=== PATIENT | female | born 1995 | race Caucasian/White ===

== ENCOUNTER 2021-11-06 17:09 | Outpatient (CLI) | payer MEDICAID ==
[~2021-11-06] VITALS: Ht 167.6 cm; Wt 67.7 kg
--- NOTE | 2021-11-06 17:20 | NUR ---
PT AMBULATORY ONTO UNIT WITH SIGNIFICANT OTHER. COMPLAINING OF TIGHTNESS IN STOMACH 2-3 TIMES AN HOUR. CHANGED INTO CLEAN GOWN. FHR MONITOR/TOCO APPLIED. VITAL SIGNS WNL. PT DENIES LEAKING OF FLUID, DECREASED MOVEMENT, REGULAR CONTRACTIONS, OR VAGINAL BLEEDING. PT ORIENTED TO ROOM. PLAN OF CARE DISCUSSED. PT VERBALIZES UNDERSTANDING.
[2021-11-06] MEDS ORDERED: CRINONE4% VG (17:43)
[2021-11-06] MEDS ORDERED: PRENATAL TABLET PO (17:43)
[2021-11-06] MEDS ORDERED: TYLENOL 325MG325 MG PO (17:44)
[2021-11-06 18:00] VITALS: BP 122/66; PULSE 83
--- NOTE | 2021-11-06 19:30 | NUR ---
Fluid bolus complete. Category 1 FHR tracing on Baby A and Baby B. Pt denies feeling cramping or abdominal pain. Only complaint is restless legs. Monitors off, patient up to bathroom at this time.
--- NOTE | 2021-11-06 20:15 | NUR ---
Discharge instructions reviewed with patient and spouse, verbalized understanding. Pt seen ambulating off unit with spouse.
== END 2021-11-06 20:15 | disposition home or self-care (01) ==
LOC: LDRO 17:09 → LDR 17:57 → LDRO 20:15
DX: O26.893 Other specified pregnancy related conditions, third trimester (principal); Z3A.29 29 weeks gestation of pregnancy
CPT/HCPCS: J7120

== ENCOUNTER 2021-12-18 11:10 | Outpatient (CLI) | payer MEDICAID ==
[~2021-12-18] VITALS: Ht 167.6 cm; Wt 83.0 kg
[~2021-12-18 11:10] MED LIST: CRINONE4% VG; PRENATAL TABLET PO; TYLENOL 325MG325 MG PO
--- NOTE | 2021-12-18 11:25 | NUR ---
PT AMBULATORY TO UNIT FOR SCHEDULE NST. DENIES LEAKING OF FLUID OR CONTRACTIONS. REPORTS POSITIVE MOVEMENT.
[2021-12-18] MEDS ORDERED: PROMETRIUM200 M1 VG (11:44)
--- NOTE | 2021-12-18 13:30 | NUR ---
ALL DC PAPERWORK REVIEWED AND UNDERSTOOD. PT TO BEGIN COLLECTION OF 24 HOUR URINE WITH NEXT VOID, ALL INSTRUCTIONS REVIEWED. (SEE PHYS NOTIFICATION FOR FURTHER LAB ORDERS TOMORROW). PT AGREEABLE AND VOICES UNDERSTANDING. NO FURTHER QUESTIONS OR CONCERNS AT THIS TIME.
[2021-12-19 15:50] LABS: BASO % 0.4 % (0.0-2.0); EOS # 0.4 K/mm3 (0.0-0.7); EOS % 4.2 % (0.0-4.0); GRAN # 6.9 K/mm3 (1.4-6.5); GRAN % 68.8 % (42.2-75.2); HEMATOCRIT 30.4 % (37.0-47.0); HEMOGLOBIN 9.8 g/dl (12.5-16.0); LYMPH # 1.8 K/mm3 (1.2-3.4); LYMPH % 18.1 % (20.0-51.0); MEAN CELL VOLUME 74 fl (80.0-100.0); MEAN CORPUSCULAR HEMOGLOBIN 24 pg (27-31); MEAN CORPUSCULAR HGB CONC 32 g/dl (33.0-37.0); MEAN PLATELET VOLUME 12.7 fl (7.4-10.4); MONO # 0.7 K/mm3 (0.1-0.6); MONO % 7.1 % (1.7-9.3); PLATELET COUNT 272 K/mm3 (130-400); RED BLOOD COUNT 4.11 M/mm3 (4.10-5.30); REDCELL DISTRIBUTION WIDTH-CV 16.7 % (11.5-14.5)
[2021-12-19 16:07] LABS: ALANINE AMINOTRANSFERASE 31 U/L (0-55); ALBUMIN 1.4 gm/dL (3.5-5.0); ALKALINE PHOSPHATASE 301 U/L (40-150); ANION GAP 9 mmol/L (7-16); AST,SGOT 48 U/L (5-34); BILIRUBIN,TOTAL 0.3 mg/dL (0.2-1.2); BLOOD UREA NITROGEN 15 mg/dL (7-19); CALCIUM 7.7 mg/dL (8.4-10.2); CARBON DIOXIDE 18 mmol/L (22-29); CHLORIDE 93 mmol/L (98-107); CREATININE, serum 0.62 mg/dL (0.57-1.11); GLUCOSE 82 mg/dL (70-99); POTASSIUM 4.4 mmol/L (3.5-4.5); SODIUM 120 mmol/L (136-145); TOTAL PROTEIN 5.5 gm/dL (6.2-8.1)
== END 2021-12-18 13:30 | disposition home or self-care (01) ==
LOC: LDRO 11:10
PROVIDERS: Obstetrics & Gynecology
DX: O16.3 Unspecified maternal hypertension, third trimester (principal); Z3A.35 35 weeks gestation of pregnancy

== ENCOUNTER → 2021-12-19 | Outpatient (CLI) | payer MEDICAID ==
[~2021-12-19] MED LIST changes: +CEPHALEXIN500 M1 PO; +MOTRIN 800800 MG/TAB PO; +PERCOCET 325 MG1 TA2 PO; +PROCARDIA XL 6060 MG PO; +PROMETRIUM200 M1 VG
[2021-12-19 16:52] LABS: CREATININE, serum 0.62 mg/dL (0.57-1.11)
[2021-12-19 17:36] LABS: PROTEIN, TOTAL URINE random 364 mg/dL
[2021-12-19 18:13] LABS: URINE TOTAL VOLUME - 24 HRS 2500 mL/24 hr
== END ==
LOC: COL.LAB 10:29
PROVIDERS: Obstetrics & Gynecology
DX: Z01.89 Encounter for other specified special examinations (principal)

== ENCOUNTER 2021-12-26 09:42 | Inpatient (IN) | payer MEDICAID ==
[~2021-12-26] VITALS: Ht 167.6 cm; Wt 83.2 kg
[2021-12-26] VITALS (27 sets, daily range): BP systolic 92–185; BP diastolic 44–112; PULSE 73–112; TEMP 97.4–98.2
[~2021-12-26 09:42] MED LIST changes: -CEPHALEXIN500 M1 PO; -MOTRIN 800800 MG/TAB PO; -PERCOCET 325 MG1 TA2 PO; -PROCARDIA XL 6060 MG PO
[2021-12-26 11:18] LABS: BASO # 0.1 K/mm3 (0.0-0.2); BASO % 0.5 % (0.0-2.0); EOS # 0.5 K/mm3 (0.0-0.7); EOS % 5.2 % (0.0-4.0); GRAN # 5.9 K/mm3 (1.4-6.5); GRAN % 64.5 % (42.2-75.2); HEMOGLOBIN 11.6 g/dl (12.5-16.0); LYMPH % 21.9 % (20.0-51.0); MEAN CELL VOLUME 74 fl (80.0-100.0); MEAN CORPUSCULAR HEMOGLOBIN 24 pg (27-31); MEAN CORPUSCULAR HGB CONC 32 g/dl (33.0-37.0); MEAN PLATELET VOLUME 11.2 fl (7.4-10.4); MONO # 0.6 K/mm3 (0.1-0.6); PLATELET COUNT 331 K/mm3 (130-400); RED BLOOD COUNT 4.84 M/mm3 (4.10-5.30)
[2021-12-26 11:21] LABS: HEMATOCRIT 35.9 % (37.0-47.0)
[2021-12-26 11:34] LABS: ALBUMIN 1.1 gm/dL (3.5-5.0); BILIRUBIN,TOTAL 0.4 mg/dL (0.2-1.2); CALCIUM 7.6 mg/dL (8.4-10.2); CREATININE, serum 0.67 mg/dL (0.57-1.11); MAGNESIUM 1.9 mg/dL (1.6-2.6); POTASSIUM 4.2 mmol/L (3.5-4.5); TOTAL PROTEIN 5.4 gm/dL (6.2-8.1)
--- NOTE | 2021-12-26 18:00 | NUR ---
1150: PT SITTING FOR EPIDURAL. UNABLE TO CONTINUOUSY MONITOR FHR. RN AT BEDSIDE.
--- NOTE | 2021-12-26 22:25 | NUR ---
2225-PROCARDIA XL 60MG GIVEN PO PER DR HAY ORDER.
[2021-12-27 01:10] VITALS: BP 156/109; PULSE 90; TEMP 98
[2021-12-27 03:15] VITALS: BP 136/95; PULSE 82; TEMP 98
--- NOTE | 2021-12-27 03:15 | NUR ---
0315-PERICARE DONE AND PERIPAD CHANGED. SCANT BLEEDING NOTED ON PAD.
[2021-12-27 07:45] VITALS: BP 118/86; PULSE 79; TEMP 97.7
[2021-12-27 09:39] LABS: HEMOGLOBIN 10.2 g/dl (12.5-16.0); MEAN CELL VOLUME 77 fl (80.0-100.0); MEAN CORPUSCULAR HEMOGLOBIN 25 pg (27-31); MEAN CORPUSCULAR HGB CONC 32 g/dl (33.0-37.0); MEAN PLATELET VOLUME 11.8 fl (7.4-10.4); PLATELET COUNT 388 K/mm3 (130-400); RED BLOOD COUNT 4.17 M/mm3 (4.10-5.30); REDCELL DISTRIBUTION WIDTH-CV 18.7 % (11.5-14.5)
[2021-12-27 09:50] LABS: BILIRUBIN,TOTAL 0.3 mg/dL (0.2-1.2); CREATININE, serum 0.74 mg/dL (0.57-1.11); POTASSIUM 4.4 mmol/L (3.5-4.5)
[2021-12-27 10:09] LABS: HEMATOCRIT 32.1 % (37.0-47.0)
--- NOTE | 2021-12-27 10:36 | NUR ---
0900 DR RAMIREZ NOTIFIED OF BP 118/86 THIS AM AND SHE STILL WANTS THE PROCARDIA GIVEN.
--- NOTE | 2021-12-27 10:53 | NUR ---
Initial visit; Patient thanked Ham Boner for offering congratulations and God's blessings for the of her twin girls. Ham Boner thanked patient for choosing [facility].
[2021-12-27 13:00] VITALS: BP 110/66; PULSE 74; TEMP 97.7
[2021-12-27 17:15] VITALS: BP 118/72; PULSE 91; TEMP 97.5
[2021-12-27 21:45] VITALS: BP 137/85; PULSE 96; TEMP 97.8
[2021-12-28 03:00] VITALS: BP 138/81; PULSE 107; TEMP 98.9
[2021-12-28 08:16] VITALS: BP 140/88; PULSE 101; TEMP 97.8
--- NOTE | 2021-12-28 10:00 | NUR ---
IV LASIX X1 ADMINISTERED PER ORDERS. VORB TO REMOVE PT'S IV AND ABDOMINAL DRESSING TO ALLOW PT TO SHOWER FOLLOWING IV LASIX DOSE.
[2021-12-28 12:10] VITALS: BP 138/78; PULSE 122; TEMP 98.2
--- NOTE | 2021-12-28 15:00 | NUR ---
PT'S ABDOMINAL DRESSING REMOVED. INCISION ASSESSED. EDGES WELL APPROXIMATED. NO REDNESS OR SIGNS OF INFECTION NOTED. PT EDUCATED ON INCISION CARES AT THIS TIME.
[2021-12-28 17:43] VITALS: BP 144/78; PULSE 112; TEMP 97.9
[2021-12-28 19:10] VITALS: BP 138/76; PULSE 116; TEMP 98.3
[2021-12-29 07:15] VITALS: BP 134/85; PULSE 108; TEMP 98
[2021-12-29 09:00] VITALS: BP 149/93; PULSE 117
--- NOTE | 2021-12-29 09:21 | NUR ---
Initial visit attempt; Patient out of room, Manager Research Development left card of congratulations for the of her daughter and informations regarding the availability of Spiritual Care at [facility].
[2021-12-29 17:00] VITALS: BP 132/71; PULSE 112; TEMP 97.8
--- NOTE | 2021-12-29 18:30 | NUR ---
Report recieved. Sitting in bed. Encouraged to pump. Informed of 's next scheduled feed.
[2021-12-29 20:10] VITALS: BP 142/79; PULSE 114; TEMP 97.6
--- NOTE | 2021-12-29 20:10 | NUR ---
VS and assessment completed at this time. Sitting up in bed on a video call with "baby's dad". Updated whiteboard. Encouraged to pump between 2129 and 2144 so that the milk is ready for the 2214/2229 feedings. Encouraged to assist with next feeding, declined.
--- NOTE | 2021-12-29 22:30 | NUR ---
To nursery at this time with pumped breastmilk. Walked to both isolettes and talked to each baby. Declined assisted with bottle feeds. Return to room, "to sleep." Requested only to be woke for Motrin.
[2021-12-30 04:20] VITALS: BP 149/82; PULSE 109
[2021-12-30 08:00] VITALS: BP 114/80; PULSE 94; TEMP 98.1
[2021-12-30] MEDS ORDERED: MOTRIN 800800 MG/TAB PO (08:45)
[2021-12-30] MEDS ORDERED: PERCOCET 325 MG1 TA2 PO (08:45)
[2021-12-30] MEDS ORDERED: PROCARDIA XL 6060 MG PO (08:45)
--- NOTE | 2021-12-30 14:33 | NUR ---
Medical Administrative Assistant responded to consult in OB to discuss resources and services with patient. SW met with patient and patient's mother, Gaye (ph#[phone]) who is at bedside. Patient advised Gaye is very supportive and lives in [place]. Patient lives in [place] with the babys' father, Gideon (ph#[phone]) who is also supportive. Patient had twin girls and advised they are her first children, so she is working on gaining confidence with her parenting skills. Patient advised that Gideon is doing well with caregiving skills and very helpful. Patient reports she has all supplies needed at home X2 including bassinets, play pens, formula, a bath, and a hand pump. Patient advised she is going to call her insurance today to inquire about securing an electric pump. Patient advised she is employed at [employer] and Gideon is a musician. Patient's mother, Gaye will provide childcare once patient returns to work. Patient stated that she and Gideon share a vehicle that she drives to work. Gideon cannot drive at this time due to not having a current liscense. SW inquired about any animals living in the home and patient states they have a bearded dragon, which is in it's tank at all times unless the tank is being cleaned. Patient remarks that the bearded dragon is a "vegetarian". SW provided and reviewed [facility] Resource Guide. Patient is interested in WIC and Maternal and Child Health services at the [facility]. SW contacted both the WIC office and Medical Administrative Assistant, Sumi with Maternal and Child Health and requested they contact patient. Patient gave VAISHALI permission to contact [facility] and share her contact information. VAISHALI collaborated about the above with RN.
[2021-12-30 16:00] VITALS: BP 147/79; PULSE 101; TEMP 98.8
--- NOTE | 2022-01-02 16:00 | NUR ---
Piano Regulator Inspector spoke with Dr. Kelly about concerns for patient's ability to provide cares to infants and level of support from father of baby and patient's parents. Patient has required multiple prompts to feed the twins and provide cares. FatherGideon has not been up much to assist. Dr. Kelly would like patient as well as her support system to be able to demonstrate they can care for both babies independently prior to discharge. There are concerns for one baby's weight. Babies will not be discharged today based on the above concerns. Both Dr. Kelly and VAISHALI feel a DCF report is warranted to ensure patient has the resources, services and support needed to be succesful. VAISHALI collaborated with RN who also expressed concerns in line with the above information. RN advised that father of baby did not stay overnight with patient after patient's because he needed to get home to take care of their pet pantera. RN advised that patient's mother, Gaye and patient are insistent that Gideon is supportive and is knowledgeable about cares. SW made report to [facility] (intake #[id number]). VAISHALI also contacted VAISHALI Jonas at the [facility]. Sumi has made contact with patient, however before they can initiate the home visits, patient has to complete forms that were emailed to her. VAISHALI followed up with patient and her parents are at bedside. Gideon not present at this time. Patient is tearful and expresses that she is feeling upset about the situation. Patient indicated she is feeling stressed about being in the hospital for almost a week and that she is trying to recover from her . Patient advised she is having more drainage from her incision site. Patient's mother, Gaye expressed that patient has the support needed to take babies home and wants to know what she can do to demonstrate this. VAISHALI advised that one thing that she could assist patient with, if patient is agreeable, is helping her complete the forms for [facility] so that services can be started. Gaye advised she will help with these and patient states she is still agreeable to in home services and having her mom assist with the forms. Patient is still tearful and expressed she wants to be able to return home this weekend if possible. SW offered emotional support. SW spoke with patient about report made to DCF and encouraged patient that the reason this was done was so she could have access to as many services and resources as possible. SW encouraged patient that she wants to set patient up for success and help secure the formal supports she would benefit from. Patient verbalized understanding. Gaye advised that Gideon is a good support for patient, but [place] VAISHALI again advised that we want to set patient and babies up for success and that the goal is not to separate patient from her babies. Gaye expressed understanding. VAISHALI followed up with KRISTAN TOM, Solo (ph#[phone]) who advised she met with patient along with patient's parents and Gideon. Solo collaborated concerns with Gideon and advised he was not engaged during her visit and avoided eye contact. Solo did express that overall her visit went well and patient was receptive to help and services. Solo advised she will follow up with patient by phone on Wednesday when she returns to the office and will schedule a follow up home visit for or Wednesday where she will assess the home and review safe sleep practices. Solo discussed services from Parents and Teacher as well as Toddler Services with patient and will follow up on setting patient up with these services during their home visit. VAISHALI contacted RN and advised her on the above.
== END 2021-12-30 17:40 | disposition home or self-care (01) | DRG 787 ==
LOC: LDRO 09:42 → LDR 10:39 → OB 10:39
PROVIDERS: ADMIT Obstetrics & Gynecology
PROC: 10D00Z1 Extraction of Products of Conception, Low, Open Approach (ICD-10-PCS; principal; 2021-12-26)
DX: O14.14 Severe pre-eclampsia complicating childbirth (principal); O26.873 Cervical shortening, third trimester; Z3A.36 36 weeks gestation of pregnancy; O36.80X1 Pregnancy with inconclusive fetal viability, fetus 1; O76 Abnormality in fetal heart rate and rhythm complicating labor and delivery; O30.033 Twin pregnancy, monochorionic/diamniotic, third trimester; O99.344 Other mental disorders complicating childbirth; F32.A Depression, unspecified; F90.9 Attention-deficit hyperactivity disorder, unspecified type; Z37.2 Twins, both liveborn
CPT/HCPCS: J0360; J1100; J1885; J1940; J2405; J2590; J2765; J7120

== ENCOUNTER 2022-01-02 12:07 | Emergency (ER) | payer MEDICAID ==
[~2022-01-02] VITALS: Ht 167.6 cm; Wt 65.9 kg
[~2022-01-02 12:07] MED LIST changes: +MOTRIN 800800 MG/TAB PO; +PERCOCET 325 MG1 TA2 PO; +PROCARDIA XL 6060 MG PO
[2022-01-02 12:23] VITALS: TEMP 97.9
[2022-01-02 13:17] LABS: HEMOGLOBIN 8.5 g/dl (12.5-16.0); MEAN CELL VOLUME 79 fl (80.0-100.0); MEAN CORPUSCULAR HEMOGLOBIN 25 pg (27-31); MEAN CORPUSCULAR HGB CONC 31 g/dl (33.0-37.0); PLATELET COUNT 670 K/mm3 (130-400); RED BLOOD COUNT 3.46 M/mm3 (4.10-5.30); REDCELL DISTRIBUTION WIDTH-CV 21.2 % (11.5-14.5)
[2022-01-02 13:18] LABS: HEMATOCRIT 27.2 % (37.0-47.0)
[2022-01-02 13:31] LABS: CALCIUM 8.3 mg/dL (8.4-10.2); CREATININE, serum 0.54 mg/dL (0.57-1.11); POTASSIUM 3.7 mmol/L (3.5-4.5)
[2022-01-02 13:40] LABS: ANISOCYTOSIS 2+; EOSINOPHIL 2 % (0-4); HYPOCHROMIA 2+; LYMPHOCYTE 10 % (20.0-51.0); NEUTROPHILS 82 % (42.0-75.2); NUCLEATED RED BLOOD CELL 1 (0-6); PLATELET ESTIMATE INCREASED (NORMAL)
[2022-01-02] MEDS ORDERED: CEPHALEXIN500 M1 PO (13:45)
[2022-01-02 13:55] VITALS: BP 138/88; PULSE 105
== END 2022-01-02 14:09 | disposition home or self-care (01) ==
LOC: COL.ER 12:07
PROVIDERS: Emergency Medicine
DX: O72.2 Delayed and secondary postpartum hemorrhage (principal); D64.9 Anemia, unspecified; D72.829 Elevated white blood cell count, unspecified
CPT/HCPCS: J0696